=== PATIENT | female | born 1975 | race African-American/Black ===

== ENCOUNTER 2023-05-24 18:53 | Emergency (ER) | payer MEDICAID, OTHER ==
[~2023-05-24] VITALS: Ht 172.7 cm; Wt 70.0 kg
[2023-05-24 19:02] VITALS: BP 166/66; PULSE 100; RESP 18; TEMP 98.2; O2SAT 98
[2023-05-24] MEDS ORDERED: LIDOCAINE HCL 1% 20ML VIAL (Pyxis) INJ INFIL ONE (19:30)
[2023-05-24] MEDS ORDERED: TETANUS AND DIPHTHERIA TOX/PF 0.5ML SYR (ADULT) IM ONE (19:30)
[2023-05-24] MEDS ORDERED: BACITRACIN ZINC OINT UDPKT TOP ONE (19:30)
[2023-05-24] MEDS ORDERED: CEFTRIAXONE SODIUM 500MG VIAL IM ONE (19:30)
[2023-05-24] MEDS ORDERED: BACITRACIN ZINC OINT UDPKT TOP NR (19:30)
[2023-05-24] MEDS ORDERED: CEFTRIAXONE SODIUM 500MG VIAL IM NR (20:30)
[2023-05-24] MEDS ORDERED: LIDOCAINE HCL 1% 20ML VIAL (Pyxis) INJ INFIL NR (20:30)
[2023-05-24] MEDS ORDERED: TETANUS, DIPHTHERIA, PERTUSSIS VAC/PF 0.5ML (>10YR OLD) IM ONE (20:30)
[2023-05-24] MEDS ORDERED: ACETAMINOPHEN 325MG TABLET PO NR (21:28)
[2023-05-24] MEDS ORDERED: AMOX-405 MT (22:30)
== END 2023-05-24 23:15 | disposition home or self-care (01) ==
LOC: ER 18:53
DX: S61.432A Puncture wound without foreign body of left hand, initial encounter (principal); W54.0XXA Bitten by dog, initial encounter; Y93.89 Activity, other specified; Y92.89 Other specified places as the place of occurrence of the external cause; Y99.8 Other external cause status
CPT/HCPCS: 73090; 73130; 90715; 12005; 90471; 96372; 99284; J0696; J3490; Z7610; 90714

== ENCOUNTER 2024-10-06 23:41 | Emergency (ER) | payer SELFPAY ==
[~2024-10-06] VITALS: Ht 172.7 cm; Wt 160.0 kg
[~2024-10-06 23:41] MED LIST: AMOX-405 MT
[2024-10-06 23:53] VITALS: O2SAT 98
[2024-10-07 00:15] VITALS: TEMP 36.8
[2024-10-07 04:40] VITALS: BP 145/92; PULSE 87; RESP 14; O2SAT 98
== END 2024-10-07 04:50 | disposition home or self-care (01) ==
LOC: ER 23:41
DX: T51.0X1A Toxic effect of ethanol, accidental (unintentional), initial encounter (principal); Y92.9 Unspecified place or not applicable
CPT/HCPCS: 99283